=== PATIENT | male | born 1995 | race Caucasian/White ===

== ENCOUNTER 2018-04-10 20:30 | Emergency (ER) | payer SELFPAY ==
[~2018-04-10] VITALS: Ht 175.3 cm; Wt 96.6 kg
[2018-04-10 21:09] VITALS: Ht 175.3 cm; Wt 96.6 kg
[2018-04-10 23:32] VITALS: BP 123/76
== END 2018-04-10 23:32 | disposition home or self-care (01) ==
LOC: ED 20:30
DX: K29.70 Gastritis, unspecified, without bleeding (principal)
CPT/HCPCS: J0780; J1885